=== PATIENT | male | born 1940 | race Native Hawaiian/Other Pacific Islander ===

== ENCOUNTER 2016-11-02 14:46 | Outpatient (CLI) | payer OTHER, MEDICARE ==
[2016-11-02 15:41] LABS: PLATELET COUNT 302 K/uL (142-355)
[2016-11-02 16:48] LABS: POTASSIUM 4.7 mmol/L (3.6-5.2)
== END 2016-11-02 20:21 | disposition home or self-care (01) ==
LOC: LAB 14:46
PROVIDERS: Internal Medicine
DX: I10 Essential (primary) hypertension (principal); E03.8 Other specified hypothyroidism; Z12.5 Encounter for screening for malignant neoplasm of prostate; Z79.899 Other long term (current) drug therapy; Z51.81 Encounter for therapeutic drug level monitoring; R73.03 Prediabetes
CPT/HCPCS: 80053; 80061; 81000; 83036; 84153; 84439; 84443; 85027

== ENCOUNTER 2016-11-15 08:37 | Outpatient (CLI) | payer OTHER, MEDICARE | END 2016-11-15 19:03 | disposition home or self-care (01) | LOC: US 08:37 | DX: Z13.6 Encounter for screening for cardiovascular disorders (principal) ==

== ENCOUNTER 2017-05-17 08:36 | Outpatient (CLI) | payer OTHER, MEDICARE ==
[2017-05-17 08:57] LABS: PLATELET COUNT 277 K/uL (142-355)
[2017-05-17 09:48] LABS: POTASSIUM 4.5 mmol/L (3.6-5.2)
== END 2017-05-17 09:40 | disposition home or self-care (01) ==
LOC: LABW 08:36
PROVIDERS: Internal Medicine
DX: I10 Essential (primary) hypertension (principal); E03.8 Other specified hypothyroidism; R73.03 Prediabetes
CPT/HCPCS: 36415; 80053; 80061; 81000; 83036; 84439; 84443; 85027

== ENCOUNTER 2017-05-24 15:09 | Outpatient (CLI) | payer OTHER, MEDICARE | END 2017-05-24 16:10 | disposition home or self-care (01) | LOC: RAD 15:09 | DX: Z01.818 Encounter for other preprocedural examination (principal) ==

== ENCOUNTER 2017-06-19 07:42 | Outpatient (CLI) | payer OTHER, MEDICARE | END 2017-06-19 19:06 | disposition home or self-care (01) | LOC: NM 07:42 | DX: Z01.810 Encounter for preprocedural cardiovascular examination (principal) | CPT/HCPCS: A9500; J2785 ==

== ENCOUNTER 2018-04-26 07:13 | Outpatient (CLI) | payer OTHER, MEDICARE ==
[2018-04-26 08:41] LABS: PLATELET COUNT 278 K/uL (142-355)
[2018-04-26 09:15] LABS: POTASSIUM 4.5 mmol/L (3.6-5.2)
== END 2018-04-26 19:31 | disposition home or self-care (01) ==
LOC: LABW 07:13
PROVIDERS: Internal Medicine
DX: I10 Essential (primary) hypertension (principal); E03.9 Hypothyroidism, unspecified; Z12.5 Encounter for screening for malignant neoplasm of prostate; R73.03 Prediabetes
CPT/HCPCS: 36415; 80053; 80061; 81000; 83036; 84153; 84439; 84443; 85027

== ENCOUNTER 2018-09-05 12:26 | Outpatient (CLI) | payer OTHER, MEDICARE ==
[2018-09-05 13:05] LABS: PLATELET COUNT 288 K/uL (142-355)
[2018-09-05 13:23] LABS: POTASSIUM 4.7 mmol/L (3.6-5.2)
== END 2018-09-05 20:37 | disposition home or self-care (01) ==
LOC: LABW 12:26
PROVIDERS: Nurse Practitioner Family
DX: Z79.899 Other long term (current) drug therapy (principal)
CPT/HCPCS: 36415; 80053; 85027; 87070; 87205

== ENCOUNTER 2018-12-11 06:37 | Outpatient (CLI) | payer OTHER, MEDICARE ==
[2018-12-11 07:48] LABS: PLATELET COUNT 293 K/uL (142-355)
[2018-12-11 08:48] LABS: POTASSIUM 4.3 mmol/L (3.6-5.2)
== END 2018-12-11 20:01 | disposition home or self-care (01) ==
LOC: LABW 06:37
PROVIDERS: Internal Medicine
DX: R73.03 Prediabetes (principal); I10 Essential (primary) hypertension
CPT/HCPCS: 36415; 80053; 80061; 81000; 83036; 84439; 84443; 85027

== ENCOUNTER 2019-04-22 07:36 | Outpatient (CLI) | payer OTHER, MEDICARE ==
[2019-04-22 08:44] LABS: POTASSIUM 4.5 mmol/L (3.6-5.2)
== END 2019-04-22 23:32 | disposition home or self-care (01) ==
LOC: LABW 07:36 → EDSTATUS 07:47 → LABW 23:32
PROVIDERS: Internal Medicine
DX: I10 Essential (primary) hypertension (principal); R73.03 Prediabetes; E78.49 Other hyperlipidemia; E03.8 Other specified hypothyroidism
CPT/HCPCS: 36415; 80053; 80061; 83036; 84439; 84443

== ENCOUNTER 2019-07-16 18:48 | Outpatient (CLI) | payer OTHER, MEDICARE ==
[2019-07-17] MEDS ORDERED: FENOFIBRATE160 MG PO (02:25)
[2019-07-17] MEDS ORDERED: EUTHYROX175 MCG PO (02:26)
[2019-07-17] MEDS ORDERED: LIPITOR80 MG PO (02:27)
[2019-07-17] MEDS ORDERED: CLOPIDOGREL75 MG PO (02:28)
[2019-07-17] MEDS ORDERED: IRBESARTAN150 MG PO (02:29)
[2019-07-17] MEDS ORDERED: METO50TA27 PO (02:30)
== END 2019-07-16 18:54 | disposition short-term general hospital (02) ==
LOC: AMB 18:48
DX: K92.2 Gastrointestinal hemorrhage, unspecified (principal)
CPT/HCPCS: A0425; A0427

== ENCOUNTER 2019-07-16 18:57 | Observation (INO) | payer OTHER, MEDICARE ==
[~2019-07-16] VITALS: Ht 185.4 cm; Wt 104.0 kg
[2019-07-16 18:57] VITALS: BP 153/88; TEMP 98
[2019-07-16 19:39] LABS: PLATELET COUNT 308 K/uL (142-355)
[2019-07-16 19:52] LABS: POTASSIUM 5.6 mmol/L (3.6-5.2)
[2019-07-16 19:55] LABS: PARTIAL THROMBOPLASTIN TIME 19.8 SECONDS (24.5-33.6)
[2019-07-16 20:00] VITALS: BP 148/84
[2019-07-16 21:00] VITALS: BP 147/89
[2019-07-16 22:00] VITALS: BP 125/71
[2019-07-17] VITALS (18 sets, daily range): BP systolic 99–149; BP diastolic 57–86; TEMP 97.8–98.7; Ht 185.4 cm; Wt 104.0 kg
[2019-07-17] MEDS ORDERED: FENOFIBRATE160 MG PO (02:25)
[2019-07-17] MEDS ORDERED: EUTHYROX175 MCG PO (02:26)
[2019-07-17] MEDS ORDERED: LIPITOR80 MG PO (02:27)
[2019-07-17] MEDS ORDERED: CLOPIDOGREL75 MG PO (02:28)
[2019-07-17] MEDS ORDERED: IRBESARTAN150 MG PO (02:29)
[2019-07-17] MEDS ORDERED: METO50TA27 PO (02:30)
[2019-07-17 06:09] LABS: PLATELET COUNT 222 K/uL (142-355)
[2019-07-17 08:43] LABS: POTASSIUM 4.6 mmol/L (3.6-5.2)
== END 2019-07-17 13:32 | disposition home or self-care (01) ==
LOC: ED 18:57 → ICU 23:22
PROVIDERS: Family Medicine; ADMIT Emergency Medicine
DX: A04.8 Other specified bacterial intestinal infections (principal); I25.10 Atherosclerotic heart disease of native coronary artery without angina pectoris; I10 Essential (primary) hypertension; K57.90 Diverticulosis of intestine, part unspecified, without perforation or abscess without bleeding; D64.89 Other specified anemias; E78.49 Other hyperlipidemia; E87.5 Hyperkalemia; K92.1 Melena; E86.0 Dehydration; E78.00 Pure hypercholesterolemia, unspecified
CPT/HCPCS: 36415; 80053; 82272; 85014; 85018; 85027; 85610; 85730; 86318; 87015; 87045; 87324; 87338; 87449; 87899; 93005; 96360; 99220; 99285; G0378; J0696; J2405; J3490

== ENCOUNTER 2019-07-22 10:24 | Outpatient (CLI) | payer OTHER, MEDICARE ==
[~2019-07-22 10:24] MED LIST: CLOPIDOGREL75 MG PO; EUTHYROX175 MCG PO; FENOFIBRATE160 MG PO; IRBESARTAN150 MG PO; LIPITOR80 MG PO; METO50TA27 PO
[2019-07-22 11:32] LABS: PLATELET COUNT 367 K/uL (142-355)
[2019-07-22 11:45] LABS: POTASSIUM 4.2 mmol/L (3.6-5.2)
== END 2019-07-22 20:10 | disposition home or self-care (01) ==
LOC: LABW 10:24
PROVIDERS: Internal Medicine Gastroenterology
DX: K92.2 Gastrointestinal hemorrhage, unspecified (principal); D64.89 Other specified anemias
CPT/HCPCS: 36415; 80053; 85027

== ENCOUNTER 2019-08-08 07:42 | Outpatient (CLI) | payer OTHER, MEDICARE ==
[2019-08-08 08:08] LABS: PLATELET COUNT 351 K/uL (142-355)
[2019-08-08 08:18] LABS: POTASSIUM 4.6 mmol/L (3.6-5.2)
== END 2019-08-08 19:51 | disposition home or self-care (01) ==
LOC: LABW 07:42
PROVIDERS: Internal Medicine
DX: D50.0 Iron deficiency anemia secondary to blood loss (chronic) (principal)
CPT/HCPCS: 36415; 80053; 85027

== ENCOUNTER 2019-12-24 07:27 | Outpatient (CLI) | payer OTHER, MEDICARE ==
[2019-12-24 08:19] LABS: PLATELET COUNT 292 K/uL (142-355)
[2019-12-24 08:40] LABS: POTASSIUM 4.4 mmol/L (3.6-5.2)
== END 2019-12-24 21:48 | disposition home or self-care (01) ==
LOC: LAB 07:27
PROVIDERS: Internal Medicine
DX: I25.10 Atherosclerotic heart disease of native coronary artery without angina pectoris (principal); I10 Essential (primary) hypertension; E03.8 Other specified hypothyroidism
CPT/HCPCS: 36415; 80053; 80061; 81000; 84439; 84443; 85027

== ENCOUNTER 2020-07-27 08:12 | Outpatient (CLI) | payer OTHER, MEDICARE ==
[2020-07-27 08:34] LABS: PLATELET COUNT 319 K/uL (142-355)
[2020-07-27 08:54] LABS: POTASSIUM 4.7 mmol/L (3.6-5.2)
== END 2020-07-27 22:01 | disposition home or self-care (01) ==
LOC: LABW 08:12
PROVIDERS: ATTEND Internal Medicine
DX: I25.10 Atherosclerotic heart disease of native coronary artery without angina pectoris (principal); Z79.899 Other long term (current) drug therapy
CPT/HCPCS: 36415; 80053; 80061; 81000; 84439; 84443; 85027

== ENCOUNTER 2021-05-13 10:16 | Outpatient (CLI) | payer OTHER, MEDICARE | END 2021-05-13 19:24 | disposition home or self-care (01) | LOC: US 10:16 | PROVIDERS: ATTEND Internal Medicine | DX: R79.89 Other specified abnormal findings of blood chemistry (principal) ==

== ENCOUNTER 2021-08-10 16:52 | Outpatient (CLI) | payer OTHER, MEDICARE ==
[2021-08-10 17:33] LABS: POTASSIUM 5.1 mmol/L (3.6-5.2)
== END 2021-08-10 19:05 | disposition home or self-care (01) ==
LOC: LAB 16:52
PROVIDERS: ATTEND Internal Medicine
DX: E78.49 Other hyperlipidemia (principal); N18.9 Chronic kidney disease, unspecified; E03.8 Other specified hypothyroidism
CPT/HCPCS: 80053; 80061; 84439; 84443

== ENCOUNTER 2022-01-27 06:05 | Emergency (ER) | payer OTHER, MEDICARE ==
[~2022-01-27] VITALS: Ht 185.4 cm; Wt 99.3 kg
[2022-01-27 06:56] LABS: PLATELET COUNT 275 K/uL (142-355)
[2022-01-27 07:03] LABS: POTASSIUM 3.9 mmol/L (3.6-5.2)
[2022-01-27 08:25] VITALS: BP 128/78; TEMP 98.5
[2022-01-28] MEDS ORDERED: TAMS0.4C PO (05:16)
[2022-01-28] MEDS ORDERED: PANTOPRAZOLE SO40 M1 PO (13:58)
== END 2022-01-27 08:25 | disposition home or self-care (01) ==
LOC: ED 06:05
PROVIDERS: Emergency Medicine
DX: E86.0 Dehydration (principal); E87.1 Hypo-osmolality and hyponatremia; N28.89 Other specified disorders of kidney and ureter; W18.39XA Other fall on same level, initial encounter; Y92.89 Other specified places as the place of occurrence of the external cause
CPT/HCPCS: 36415; 80053; 82150; 82550; 83690; 84443; 84484; 85027; 93005; 96360; 96361; 99284; J2405

== ENCOUNTER 2022-01-28 04:28 | Inpatient (IN) | payer OTHER, MEDICARE ==
[2022-01-28] VITALS (9 sets, daily range): BP systolic 111–157; BP diastolic 68–90; TEMP 97.6–100.7; Ht 185.4 cm; Wt 98.0 kg
[~2022-01-28] VITALS: Ht 185.4 cm; Wt 98.0 kg
[2022-01-28 05:09] LABS: PLATELET COUNT 283 K/uL (142-355)
[2022-01-28] MEDS ORDERED: TAMS0.4C PO (05:16)
[2022-01-28 05:17] LABS: POTASSIUM 3.6 mmol/L (3.6-5.2)
--- NOTE | 2022-01-28 07:35 | NUR ---
REC'D REPORT FROM DOMO RAYA RN ON PT AT THIS TIME.
--- NOTE | 2022-01-28 10:59 | NUR ---
PAPITO IN LAB REPORTS PT'S STOOL POSITIVE FOR CAMPYLOBACTER. DR. GENTILE NOTIFIED.
[2022-01-28] MEDS ORDERED: PANTOPRAZOLE SO40 M1 PO (13:58)
--- NOTE | 2022-01-28 19:08 | NUR ---
PT NOTED TO HAVE SEVERAL WATERY STOOLS THROUGH OUT THE SHIFT. PT NOTED TO NOT MAKE IT TO BSC X2 AND REQUIRED ASSISTANCE TO CLEAN HIM AND FLOOR UP. INSTRUCTED PT AND HIS AT BEDSIDE TO CALL FOR ASSISTANCE TO PREVENT ANY FALLS.
[2022-01-29] VITALS: BP 141/83; TEMP 98.8
--- NOTE | 2022-01-29 01:00 | NUR ---
PT IV ACCESS INFILTRATED. NEW IV ACCESS MADE WITH 22G CATH TO LEFT FOREARM.
--- NOTE | 2022-01-29 01:28 | NUR ---
PT CONTINOUS TO HAVE WATERY STOOLS X 3. NO C/O OF PAIN. VERY LITTLE INTAKE OF PO FLUIDS. AMBULATES SELF TO BSC. NO S/SX OF DISTRESS NOTED. CALL LIGHT WITHIN REACH. PT RESTING WITH EYES CLOSED AT THIS TIME.
[2022-01-29 04:00] VITALS: BP 142/83; TEMP 98.9
[2022-01-29 05:31] LABS: PLATELET COUNT 223 K/uL (142-355)
[2022-01-29 05:40] LABS: POTASSIUM 3.4 mmol/L (3.6-5.2)
[2022-01-29 08:00] VITALS: BP 130/77; TEMP 98.5
[2022-01-29 12:00] VITALS: BP 142/74; TEMP 98.3
[2022-01-29 16:00] VITALS: BP 134/74; TEMP 100.1
[2022-01-29 20:00] VITALS: BP 108/60; TEMP 99.1
--- NOTE | 2022-01-29 20:13 | NUR ---
PT LYING BED RESTING WITH EYES CLOSED. PT STILL HAVING WATERY BM'S. PT GIVEN TYLENOL FOR ELEVATED TEMP. TEMP CURRENTLY AT 99.1. PT'S PO INTAKE OF FOOD AND LIGUID VERY POOR. PT'S AT BEDSIDE. NO S/SX OF DISTRESS NOTED. CALL LIGHT WITHIN REACH.
--- NOTE | 2022-01-29 21:24 | NUR ---
PT LYING IN BED WATCHING TV. PT STATES HE IS FEELING A LITTLE BETTER AND THE LOOSE BM'S HAVE SLOWED DOWN. DENIES ABD. PAIN. NO S/SX OF DISTRESS NOTED. CALL LIGHT WITHIN REACH.
--- NOTE | 2022-01-29 23:38 | NUR ---
PT USING BSC AND STILL EXPERIENCING WATERY STOOLS. TEMP IS BACK TO NORMAL LIMITS AT 97.4. PT STILL DENIES PAIN WITH NO S/SX OF DISTRESS. PT PO INTAKE OF FLUIDS IS INCREASING. CALL LIGHT WITHIN REACH.
[2022-01-30] VITALS: BP 127/69; TEMP 97.4
[2022-01-30 04:00] VITALS: BP 108/66; TEMP 98.4
[2022-01-30 05:19] LABS: POTASSIUM 3.2 mmol/L (3.6-5.2)
[2022-01-30 05:57] LABS: PLATELET COUNT 218 K/uL (142-355)
--- NOTE | 2022-01-30 07:30 | NUR ---
PATIENT SITTING IN HIGH FOWLERS POSITION WITH AT BEDSIDE. PATIENT HAS NO COMPLAINTS AT THIS TIME. PATIENT REQUESTED A SHOWER AND IS RECIEVING ONE AT THIS TIME WITH HELP FROM HIS .
[2022-01-30 08:43] VITALS: BP 129/78; TEMP 97.9
[2022-01-30 12:00] VITALS: BP 150/75; TEMP 98.1
[2022-01-30 16:11] VITALS: BP 135/75; TEMP 97.8
--- NOTE | 2022-01-30 18:31 | NUR ---
PATIENT RESTING IN BED IN HIGH FOWLERS POSITION. PATIENT HAS NOCOMPLAINTS AT THIS TIME. AT BEDSIDE. CALL LIGHT WITHIN REACH, BED IN LOWEST POSITION, BED LOSCKED
[2022-01-30 20:00] VITALS: BP 153/78; TEMP 98.2
--- NOTE | 2022-01-30 22:10 | NUR ---
PT HAS BEEN UP OUT OF BED WITHOUT ANY ASSISTANCE NEEDED. PT WITH NO COMPLAINTS VOICED AT THIS TIME. NO N/V/D AT THIS TIME.
[2022-01-31] VITALS: BP 120/69; TEMP 97.8
[2022-01-31 04:00] VITALS: BP 127/67; TEMP 98.3
--- NOTE | 2022-01-31 04:02 | NUR ---
PT WITH COMPLAINTS OF HEADACHE. RATED AT PAIN SCALE OF 4. PT WAS GIVEN TYLENOL 650 MG PO.
[2022-01-31 08:00] VITALS: BP 130/73; TEMP 97.9
--- NOTE | 2022-01-31 09:26 | NUR ---
PUT IN FOR A CONSULT TO BE GIVEN FOR PATIENT CONCERNING DIABECTIC TEACHING DUE TO PATIENT BEING PREDIABECTIC.MS.PAM AWAN [employer] WORKER NOTIFIED AND GIVEN CONTACT INFORMATION.ALSO STATED IF PATIENT IS HERE ON SUNDAY SHE CAN SEE AT THAT TIME ON THE FLOOR.CC
--- NOTE | 2022-01-31 09:41 | NUR ---
PATIENT RESTING IN BED WITH WIIFE AT BEDSIDE. PATIENT HAS NO COMPLAINTS AT THIS TIME.
[2022-01-31 12:00] VITALS: BP 116/69; TEMP 97.8
[2022-01-31 16:20] VITALS: BP 132/68; TEMP 97.4
[2022-01-31 20:00] VITALS: BP 144/67; TEMP 97.9
--- NOTE | 2022-01-31 20:18 | NUR ---
PT AWAKE, ALERT, AND ORIENTED X4 SITTING UP IN BED WITH NO S/S OF ACUTE DISTRESS NOTED. SKIN WARM AND DRY, RADIAL PULSES INTACT, BS+ HYPERACTIVE, LUNGS CLEAR, 20G IV INTACT TO R AC WITH SOME BRUISING/REDNESS NOTED AND PT STATES IT IS TENDER WHEN HE BENDS HIS ARM AND HAS BEEN STUCK SEVERAL TIMES IN THE AC, INFORMED PT THAT IF IV WAS INTACT THAT IF REMAINED TENDER DIRECTOR OF CONSTRUCTION COULD START ANOTHER SITE PT STATES NO IF IV IS GOOD HE RATHER NOT HAVE A NEW ONE STARTED. C/O CONSTANT "THROBBING" HEADACHE THAT HE RATES AN "8" ON SCALE, GAVE TYLENOL 650MG PO PRN PER PT REQUEST. WILL MONITOR, RAILS UP, BED IN LOW POSITION, CALL LIGHT IN REACH, ENCOURAGED TO CALL NEEDED.
--- NOTE | 2022-01-31 20:50 | NUR ---
HEADACHE HAS DECREASED TO A 4 ON SCALE, NO REACTIONS NOTED, RAILS UP, BED IN LOW POSITION, CALL LIGHT IN REACH.
--- NOTE | 2022-01-31 22:28 | NUR ---
RESTING ON BACK WITH EYES CLOSED AND HOME CPAP IN USE, NO S/S OF PAIN OR DISTRESS NOTED, RESP RATE NONLABORED, IV INTACT WITH FLUID ONGOING, WILL MONITOR, PT REMAINS ON ISOLATION.
[2022-02-01] VITALS: BP 127/67; TEMP 98.1
--- NOTE | 2022-02-01 00:16 | NUR ---
CONTINUES TO REST IN BED WITH EYES CLOSED, NO S/S OF PAIN OR DISTRESS NOTED, WILL MONITOR CLOSELY.
--- NOTE | 2022-02-01 01:30 | NUR ---
PT CALLED CODER LIGHT STATES HE ACCIDENTLY PULLED HIS IV OUT. FOUND PT AWAKE HOLDING 22G IV CATH IN HIS HAND. FLUIDS STOPPED NO BLEEDING NOTED TO SITE IN R AC COVERED AREA WITH GAUZE. NO PROBLEMS NOTED. WILL RETURN TO RESTART IV SITE. PT DENIES ANY NEEDS OR PROBLEMS AT THIS TIME, RESP RATE NONLABORED, STATES FEELING EVEN BETTER TODAY. RAILS UP, BED IN LOW POSITION, CALL LIGHT IN REACH.
--- NOTE | 2022-02-01 02:45 | NUR ---
22G IV OBTAINED TO R UPPER ARM X 1 STICK, BLOOD RETURN NOTED AND FLUSHED EASILY WITH 20ML NS, SECURED WITH TAPE AND TEGADERM. PT TOLERATED WITH NO PROBLEMS.
[2022-02-01 04:00] VITALS: BP 137/65; TEMP 98
[2022-02-01 05:00] LABS: POTASSIUM 2.6 mmol/L (3.6-5.2)
[2022-02-01 05:07] LABS: PLATELET COUNT 321 K/uL (142-355)
--- NOTE | 2022-02-01 07:46 | NUR ---
PT SITTING UP ON BEDSIDE EATING BREAKFAST. PT'S AT BEDSIDE. NS INFUSING TO 22G BHARATH WITHOUT DIFFICULTY. PT DENIES ANY NEEDS OR C/O AT THIS TIME. BED LOW AND LOCKED, CALL LIGHT WITHIN REACH.
[2022-02-01 08:00] VITALS: BP 143/72; TEMP 98.4
--- NOTE | 2022-02-01 09:50 | NUR ---
AM ASSESSMENT COMPLETED AT THIS TIME. PT AM MEDS GIVEN. PT ALERT AND ORIENTED X4. NAD NOTED. LUNGS CLEAR THROUGH OUT BILAT. S1/S2 HEARD. POSITVE BS X4 QUADRANTS. PT REPORTS ONE BM DURING THE NIGHT AND NONE SO FAR THIS MORNING. EDEMA NOTED TO BILAT HANDS NON PITTING. EDEMA NOTED TO BLE 2+ PITTING TO RLE 1+ TI LLE. PT DENIES ANY PAIN. PT'S VOICES CONCERN ABOUT PT BEING WEAK AND POSSIBLY DISCHARGING HOME TODAY. INFORMED PT AND THAT I WOULD NOTIFY DR. WALTERS AND THEY COULD WELL WHEN SHE MAKES ROUNDS. PT AND VERBALIZE UNDERSTANDING. BE LOW AND LOCKED, CALL LIGHT WITHIN REACH.
[2022-02-01 12:00] VITALS: BP 142/75; TEMP 97.6
--- NOTE | 2022-02-01 13:54 | NUR ---
notified writer producer that patient would need some home health services. With PT/OT evaluate and treat as indicated. Bed Laster spoke with patient and his and [facility] home health was decided on and referral sent. clerical order filler answered any questions that patient and had. Bed Laster also reminded that writer producer would be calling to check up on how patient was feeling in a few days.
--- NOTE | 2022-02-01 15:00 | NUR ---
PT'S IV TO BHARATH DC'D TIP INTACT NO REDNESS OR SWELLING NOTED. PT GIVEN DISCHARGE INSTRUCTIONS. [facility]. PT INSTRUCTED TO CONTINUE TO DRINK PLENTY OF FLUIDS AND CONTINUE ROUTINE HOME MEDICATIONS. PT AND VERBALIZE UNDERSTANDING. PT DC'D VIA W/C AT THIS TIME.
== END 2022-02-01 15:00 | disposition home health service (06) | DRG 372 ==
LOC: ED 04:28 → MED/SURG 06:32
PROVIDERS: ADMIT Emergency Medicine; ATTEND Internal Medicine
DX: A04.5 Campylobacter enteritis (principal); E87.1 Hypo-osmolality and hyponatremia; A02.0 Salmonella enteritis; I25.10 Atherosclerotic heart disease of native coronary artery without angina pectoris; K57.90 Diverticulosis of intestine, part unspecified, without perforation or abscess without bleeding; E78.49 Other hyperlipidemia; R73.9 Hyperglycemia, unspecified; I12.9 Hypertensive chronic kidney disease with stage 1 through stage 4 chronic kidney disease, or unspecified chronic kidney disease; N18.32 Chronic kidney disease, stage 3b; E86.0 Dehydration
CPT/HCPCS: 36415; 80053; 81002; 83036; 83630; 83735; 84484; 85007; 85027; 87015; 87045; 87077; 87185; 87186; 87324; 87328; 87329; 87449; 87635; 87899; 93005; 96361; 96367; 96374; 96375; 99220; 99284; G0378; J2405; J3475; U0003

== ENCOUNTER 2022-02-07 15:02 | Outpatient (CLI) | payer OTHER, MEDICARE ==
[~2022-02-07 15:02] MED LIST changes: +PANTOPRAZOLE SO40 M1 PO; +TAMS0.4C PO
[2022-02-07 15:55] LABS: PLATELET COUNT 645 K/uL (142-355)
== END 2022-02-07 18:58 | disposition home or self-care (01) ==
LOC: LAB 15:02
PROVIDERS: ATTEND Internal Medicine
DX: N18.32 Chronic kidney disease, stage 3b (principal); R73.03 Prediabetes
CPT/HCPCS: 80053; 81002; 82043; 82306; 82330; 82570; 83036; 83735; 83970; 84100; 84156; 84439; 84443; 85027

== ENCOUNTER 2022-08-02 11:33 | Outpatient (CLI) | payer OTHER, MEDICARE ==
[2022-08-02 11:51] LABS: POTASSIUM 4.8 mmol/L (3.6-5.2)
== END 2022-08-02 19:33 | disposition home or self-care (01) ==
LOC: LABW 11:33
PROVIDERS: ATTEND Internal Medicine Cardiovascular Disease
DX: Z79.899 Other long term (current) drug therapy (principal)
CPT/HCPCS: 36415; 80048

== ENCOUNTER 2022-08-28 07:45 | Outpatient (CLI) | payer OTHER, MEDICARE ==
[2022-08-28 08:08] LABS: PLATELET COUNT 321 K/uL (142-355)
[2022-08-28 08:24] LABS: POTASSIUM 4.6 mmol/L (3.6-5.2)
== END 2022-08-28 19:27 | disposition home or self-care (01) ==
LOC: LABW 07:45
PROVIDERS: ATTEND Internal Medicine
DX: N18.31 Chronic kidney disease, stage 3a (principal); R73.03 Prediabetes
CPT/HCPCS: 36415; 80053; 81002; 82043; 82306; 82330; 82570; 83036; 83735; 83970; 84100; 84156; 84439; 84443; 85027

== ENCOUNTER 2022-09-20 08:57 | Outpatient (CLI) | payer OTHER, MEDICARE | END 2022-09-20 19:12 | disposition home or self-care (01) | LOC: RESP 08:57 | PROVIDERS: ATTEND Internal Medicine Cardiovascular Disease | DX: I10 Essential (primary) hypertension (principal) ==

== ENCOUNTER 2022-09-28 09:51 | Outpatient (CLI) | payer OTHER, MEDICARE | END 2022-09-28 16:00 | disposition home or self-care (01) | LOC: US 09:51 | PROVIDERS: ATTEND Internal Medicine Cardiovascular Disease | DX: I10 Essential (primary) hypertension (principal) ==

== ENCOUNTER 2022-10-11 07:49 | Outpatient (CLI) | payer OTHER, MEDICARE | END 2022-10-11 22:39 | disposition home or self-care (01) | LOC: LABW 07:49 | PROVIDERS: ATTEND Internal Medicine | DX: I10 Essential (primary) hypertension (principal) | CPT/HCPCS: 36415; 80061 ==

== ENCOUNTER 2023-01-04 14:53 | Outpatient (CLI) | payer OTHER, MEDICARE | END 2023-01-04 19:46 | disposition home or self-care (01) | LOC: RAD 14:53 | PROVIDERS: ATTEND Internal Medicine | DX: M25.512 Pain in left shoulder (principal); M54.2 Cervicalgia ==

== ENCOUNTER 2023-01-16 13:21 | Outpatient (CLI) | payer OTHER, MEDICARE ==
[2023-01-16 14:19] LABS: POTASSIUM 4.9 mmol/L (3.6-5.2)
[2023-01-16 14:32] LABS: PLATELET COUNT 296 K/uL (142-355)
== END 2023-01-16 20:36 | disposition home or self-care (01) ==
LOC: LAB 13:21
PROVIDERS: ATTEND Internal Medicine
DX: R39.198 Other difficulties with micturition (principal); D63.1 Anemia in chronic kidney disease; I25.10 Atherosclerotic heart disease of native coronary artery without angina pectoris; E78.49 Other hyperlipidemia; I12.9 Hypertensive chronic kidney disease with stage 1 through stage 4 chronic kidney disease, or unspecified chronic kidney disease; E03.8 Other specified hypothyroidism; N18.9 Chronic kidney disease, unspecified
CPT/HCPCS: 80053; 84153; 84439; 84443; 85027

== ENCOUNTER 2023-01-31 07:51 | Outpatient (CLI) | payer OTHER, MEDICARE ==
[2023-01-31 08:19] LABS: PLATELET COUNT 283 K/uL (142-355)
[2023-01-31 09:23] LABS: POTASSIUM 4.4 mmol/L (3.6-5.2)
== END 2023-01-31 20:20 | disposition home or self-care (01) ==
LOC: LABW 07:51
PROVIDERS: ATTEND Internal Medicine
DX: N18.31 Chronic kidney disease, stage 3a (principal); R73.03 Prediabetes; E78.2 Mixed hyperlipidemia
CPT/HCPCS: 36415; 80053; 80061; 81002; 82043; 82306; 82330; 82550; 82570; 83036; 83735; 83970; 84100; 84156; 84439; 84443; 85027